=== PATIENT | female | born 1955 | race African-American/Black ===

== ENCOUNTER 2017-05-25 12:26 | Inpatient (IN) ==
[2017-05-25] MEDS ORDERED: ATROPINE SULFATE PFS IVP PRN (12:55)
[2017-05-25] MEDS ORDERED: VISTARIL INJ IM PRN (12:55)
[2017-05-25] MEDS ORDERED: MORPHINE 4 MG/ML SYRINGE IVP PRN (12:55)
[2017-05-25] MEDS ORDERED: TYLENOL PO PRN (12:55)
[2017-05-25] MEDS ORDERED: NITROSTAT SL PRN (12:55)
[2017-05-25 13:10] VITALS: BMI 44.2
[2017-05-25 13:17] LABS: ABG BASE EXCESS -1 (-2.0-2.0); ABG HCO3 23.6 (22.0-26.0); ABG PH 7.402 (7.35-7.45); ABG TCO2 25 (22.0-28.0)
[2017-05-25 13:32] LABS: BASOPHILS # (AUTO) 0.1 K/uL (0-0.2); BASOPHILS % (AUTO) 0.6 % (0.0-3.0); EOSINOPHILS # (AUTO) 0.1 K/ul (0.0-0.7); EOSINOPHILS % (AUTO) 0.7 % (0.0-7.0); HEMATOCRIT 39.9 % (37.0-47.0); HEMOGLOBIN 13.2 g/dl (12.0-16.0); IMMATURE GRANULOCYTE % (AUTO) 0.1 % (0.0-5.0); LYMPHOCYTES # (AUTO) 3.3 K/uL (0.60-3.4); LYMPHOCYTES % (AUTO) 40.3 (10.0-50.0); MEAN CORPUSCULAR HEMOGLOBIN 29.2 pg (27.0-31.0); MEAN CORPUSCULAR HGB CONC 33.1 (31.8-35.4); MEAN CORPUSCULAR VOLUME 88.3 fl (81.0-99.0); MONOCYTES # (AUTO) 0.4 K/uL (0.4-2.0); MONOCYTES % (AUTO) 5.3 (0-10); NEUTROPHILS # (AUTO) 4.3 K/ul (2.0-6.9); PLATELET COUNT 266 10^3/uL (140-440); RED BLOOD COUNT 4.52 10^6/ul (4.20-5.40); WHITE BLOOD COUNT 8.14 K/ul (4.6-10.2)
[2017-05-25 13:50] LABS: ALBUMIN 3.3 g/dL (3.4-5.0); ALBUMIN/GLOBULIN RATIO 0.92; ANION GAP 13.7; BILIRUBIN,TOTAL 1.86 mg/dL (0.00-1.20); BUN/CREATININE RATIO 12.63; CALCIUM 9.4 mg/dL (8.2-10.2); CREATININE 0.95 mg/dL (0.60-1.30); POTASSIUM 3.7 mmol/L (3.5-5.10); TOTAL PROTEIN 6.9 g/dL (5.8-8.1)
[2017-05-25] MEDS ORDERED: NON-FORMULARY MEDICATION (Hydrochlorothiazide [Hydrochlorothiazide] 12.5 MG) PO PRN ×22 (13:51)
[2017-05-25] MEDS ORDERED: COLACE PO PRN (13:51)
[2017-05-25] MEDS ORDERED: XANAX PO PRN (13:51)
[2017-05-25 14:04] LABS: TROPONIN I 0.023 ng/ml (0.0000-0.4000)
[2017-05-25 14:06] LABS: CREATINE KINASE MB 2.3 ng/ml (0.0-3.6)
[2017-05-25] MEDS ORDERED: HYDROCHLOROTHIAZIDE PO PRN (14:16)
[2017-05-25 14:18] LABS: BILIRUBIN,URINE Negative (NEGATIVE); KETONES,URINE Negative (NEGATIVE); LEUKOCYTE ESTERASE ,URINE Trace (NEGATIVE); NITRITE,URINE Negative (NEGATIVE); PH,URINE 5.5 (5-9); PROTEIN,URINE Negative (NEGATIVE); URINE, BLOOD Negative (NEGATIVE)
[2017-05-25 14:24] LABS: ADD URINE MICROSCOPIC YES
--- NOTE | 2017-05-25 15:07 | DI ---
EXAM: Chest two view, frontal and lateral views. HISTORY: Shortness of air. COMPARISON: 05/09/2013. FINDINGS: The heart size is at the upper limits of normal. Atherosclerotic calcifications are pres ent There is no pulmonary vascular congestion. The lungs are clear. No pleural effusion or pneumot horax is seen. No acute osseous abnormality identified. Clips noted in the upper abdomen. Lumbar spinal hardware is incompletely imaged. IMPRESSION: No acute cardiopulmonary process.
--- NOTE | 2017-05-25 15:42 | US ---
EXAM: Venous Doppler ultrasound examination of the bilateral lower extremity veins HISTORY: Edema TECHNIQUE: Lopez scale and color Doppler imaging of the right and left lower extremity veins was per formed. FINDINGS: There is normal response to compression and normal blood flow identified within the bilat eral common femoral, femoral, deep femoral, and popliteal veins and within the peroneal veins of the calf. The posterior tibial and anterior tibial veins were not evaluated. The examination was limit ed due to patient's body habitus. IMPRESSION: No evidence of deep venous thrombus identified within the bilateral lower extremity vei ns.
[2017-05-25] MEDS: SOLU-CORTEF 250 MG IVP SCH ×2 (16:22→20:46)
[2017-05-25] MEDS: LOVENOX SUBCUT SCH (16:22)
[2017-05-25] MEDS: PEPCID PO SCH (16:23)
[2017-05-25] MEDS: COREG PO SCH (16:37)
[2017-05-25] MEDS ORDERED: DIFLUCAN ONE (16:43)
[2017-05-25] MEDS: DIFLUCAN PO SCH (16:46)
[2017-05-25] MEDS ORDERED: NON-FORMULARY MEDICATION (Calcium Carbonate [Calcium] 500 MG) PO SCH (17:00)
[2017-05-25] MEDS: OMEGA-3 FISH OIL PO SCH (20:41)
[2017-05-25] MEDS: NEURONTIN PO SCH (20:41)
[2017-05-25] MEDS: CATAPRES PO SCH (20:41)
[2017-05-25] MEDS: NORCO 7.5-325 PO PRN (20:43)
[2017-05-25] MEDS: LANTUS SUBCUT SCH (20:45)
[2017-05-25] MEDS ORDERED: NON-FORMULARY MEDICATION (Clonidine Hcl [Clonidine Hcl] 0.2 MG) PO SCH ×22 (21:00)
[2017-05-25 21:31] LABS: TROPONIN I 0.026 ng/ml (0.0000-0.4000)
[2017-05-25] MEDS: HUMULIN R SUBCUT PRN (23:20)
[2017-05-26 04:24] LABS: BASOPHILS % (AUTO) 0.1 % (0.0-3.0); HEMATOCRIT 39.1 % (37.0-47.0); IMMATURE GRANULOCYTE % (AUTO) 0.3 % (0.0-5.0); LYMPHOCYTES # (AUTO) 1.7 K/uL (0.60-3.4); LYMPHOCYTES % (AUTO) 19.7 (10.0-50.0); MEAN CORPUSCULAR HEMOGLOBIN 29.3 pg (27.0-31.0); MEAN CORPUSCULAR HGB CONC 33.2 (31.8-35.4); MEAN CORPUSCULAR VOLUME 88.3 fl (81.0-99.0); MONOCYTES # (AUTO) 0.2 K/uL (0.4-2.0); MONOCYTES % (AUTO) 1.7 (0-10); NEUTROPHILS # (AUTO) 6.8 K/ul (2.0-6.9); NEUTROPHILS % (AUTO) 78.2; PLATELET COUNT 264 10^3/uL (140-440); RED BLOOD COUNT 4.43 10^6/ul (4.20-5.40); WHITE BLOOD COUNT 8.75 K/ul (4.6-10.2)
[2017-05-26 04:45] LABS: ALBUMIN/GLOBULIN RATIO 0.88; ANION GAP 13.1; BILIRUBIN,TOTAL 1.73 mg/dL (0.00-1.20); BUN/CREATININE RATIO 15.46; CALCIUM 9.5 mg/dL (8.2-10.2); CREATININE 0.97 mg/dL (0.60-1.30); POTASSIUM 4.1 mmol/L (3.5-5.10); TOTAL PROTEIN 6.4 g/dL (5.8-8.1)
[2017-05-26] MEDS: LASIX TAB PO SCH (05:31)
[2017-05-26] MEDS: PROTONIX PO SCH (05:32)
[2017-05-26] MEDS: PEPCID PO SCH ×2 (05:32→17:17)
[2017-05-26] MEDS: SOLU-CORTEF 250 MG IVP SCH ×3 (05:33→22:25)
[2017-05-26] MEDS: NON-FORMULARY MEDICATION (Canagliflozin [Invokana] 300 MG) PO SCH (05:34)
[2017-05-26] MEDS: HUMULIN R SUBCUT PRN ×4 (05:34→22:09)
[2017-05-26] MEDS ORDERED: ASPIRIN EC PO SCH (08:00)
[2017-05-26] MEDS: OMEGA-3 FISH OIL PO SCH ×2 (08:55→21:14)
[2017-05-26] MEDS: TRIGLIDE PO SCH (08:55)
[2017-05-26] MEDS: ASPIRIN EC PO SCH (08:55)
[2017-05-26] MEDS: COZAAR PO SCH (08:55)
[2017-05-26] MEDS: CALCIUM 500 + VIT D 200 MG TABLET PO SCH (08:56)
[2017-05-26] MEDS: NEURONTIN PO SCH ×2 (08:56→21:14)
[2017-05-26] MEDS: VITAMIN D PO SCH (08:56)
[2017-05-26] MEDS: LANTUS SUBCUT SCH ×2 (08:56→21:16)
[2017-05-26] MEDS: MICRO-K CAP PO SCH (08:56)
[2017-05-26] MEDS: LOVENOX SUBCUT SCH (08:57)
[2017-05-26] MEDS: CRESTOR PO SCH (08:57)
[2017-05-26] MEDS ORDERED: NON-FORMULARY MEDICATION (Rosuvastatin Calcium [Crestor] 40 MG) PO SCH (09:00)
[2017-05-26] MEDS ORDERED: NON-FORMULARY MEDICATION (Losartan Potassium 50 MG) PO SCH (09:00)
[2017-05-26] MEDS ORDERED: EPA PO SCH (09:00)
[2017-05-26] MEDS ORDERED: OMEGA PO SCH (09:00)
[2017-05-26] MEDS ORDERED: NON-FORMULARY MEDICATION (Potassium Chloride [K-Tab Er] 10 MEQ) PO SCH (09:00)
[2017-05-26] MEDS ORDERED: DHA PO SCH (09:00)
[2017-05-26] MEDS ORDERED: NON-FORMULARY MEDICATION (Carvedilol [Coreg] 25 MG) PO SCH ×22 (09:00)
[2017-05-26] MEDS ORDERED: FISH OIL PO SCH (09:00)
[2017-05-26] MEDS ORDERED: NON-FORMULARY MEDICATION (Fenofibrate Nanocrystallized [Fenofibrate] 145 MG) PO SCH ×22 (09:00)
[2017-05-26] MEDS ORDERED: DECADRON 4 MG/ML SDV IM STA (09:04)
[2017-05-26] MEDS: LOPRESSOR PO SCH ×2 (09:23→21:14)
[2017-05-26] MEDS: COREG PO SCH ×2 (09:24→17:18)
[2017-05-26] MEDS: NORCO 7.5-325 PO PRN (17:18)
[2017-05-26] MEDS: CATAPRES PO SCH (21:15)
[2017-05-27 04:20] LABS: BASOPHILS % (AUTO) 0.2 % (0.0-3.0); HEMATOCRIT 38.4 % (37.0-47.0); HEMOGLOBIN 12.6 g/dl (12.0-16.0); IMMATURE GRANULOCYTE % (AUTO) 0.9 % (0.0-5.0); LYMPHOCYTES # (AUTO) 1.9 K/uL (0.60-3.4); LYMPHOCYTES % (AUTO) 15.7 (10.0-50.0); MEAN CORPUSCULAR HEMOGLOBIN 29.5 pg (27.0-31.0); MEAN CORPUSCULAR HGB CONC 32.8 (31.8-35.4); MEAN CORPUSCULAR VOLUME 89.9 fl (81.0-99.0); MONOCYTES # (AUTO) 0.3 K/uL (0.4-2.0); MONOCYTES % (AUTO) 2.6 (0-10); NEUTROPHILS # (AUTO) 9.7 K/ul (2.0-6.9); NEUTROPHILS % (AUTO) 80.6; PLATELET COUNT 237 10^3/uL (140-440); RED BLOOD COUNT 4.27 10^6/ul (4.20-5.40); WHITE BLOOD COUNT 12.02 K/ul (4.6-10.2)
[2017-05-27] MEDS: SOLU-CORTEF 250 MG IVP SCH (04:41)
[2017-05-27 04:43] LABS: ALBUMIN 2.9 g/dL (3.4-5.0); ALBUMIN/GLOBULIN RATIO 0.88; ANION GAP 12.3; BILIRUBIN,TOTAL 1.04 mg/dL (0.00-1.20); BUN/CREATININE RATIO 17.47; CALCIUM 9.3 mg/dL (8.2-10.2); CREATININE 1.03 mg/dL (0.60-1.30); POTASSIUM 4.3 mmol/L (3.5-5.10); TOTAL PROTEIN 6.2 g/dL (5.8-8.1)
[2017-05-27] MEDS: PROTONIX PO SCH (05:44)
[2017-05-27] MEDS: PEPCID PO SCH ×2 (05:44→16:50)
[2017-05-27] MEDS: LASIX TAB PO SCH (05:44)
[2017-05-27] MEDS: NON-FORMULARY MEDICATION (Canagliflozin [Invokana] 300 MG) PO SCH (05:45)
[2017-05-27] MEDS: HUMULIN R SUBCUT PRN ×3 (06:30→16:50)
[2017-05-27] MEDS: VITAMIN D PO SCH (09:12)
[2017-05-27] MEDS: COZAAR PO SCH (09:12)
[2017-05-27] MEDS: ASPIRIN EC PO SCH (09:12)
[2017-05-27] MEDS: DIFLUCAN PO SCH (09:13)
[2017-05-27] MEDS: LANTUS SUBCUT SCH ×2 (09:13→21:44)
[2017-05-27] MEDS: LOVENOX SUBCUT SCH (09:14)
[2017-05-27] MEDS: MICRO-K CAP PO SCH (09:14)
[2017-05-27] MEDS: LOPRESSOR PO SCH ×2 (09:14→21:43)
[2017-05-27] MEDS: OMEGA-3 FISH OIL PO SCH ×2 (09:15→21:43)
[2017-05-27] MEDS: TRIGLIDE PO SCH (09:15)
[2017-05-27] MEDS: NEURONTIN PO SCH ×2 (09:15→21:43)
[2017-05-27] MEDS: CALCIUM 500 + VIT D 200 MG TABLET PO SCH (09:15)
[2017-05-27] MEDS: CRESTOR PO SCH (09:16)
[2017-05-27] MEDS: COREG PO SCH ×2 (09:19→16:51)
[2017-05-27] MEDS ORDERED: ZOFRAN 4 MG/2 ML IVP PRN (10:00)
[2017-05-27] MEDS: PREDNISONE PO SCH (10:12)
[2017-05-27] MEDS: NORCO 7.5-325 PO PRN (20:00)
[2017-05-27] MEDS: CATAPRES PO SCH (22:18)
[2017-05-28 05:41] LABS: HEMOGLOBIN 12.3 g/dl (12.0-16.0); MEAN CORPUSCULAR HEMOGLOBIN 28.9 pg (27.0-31.0); MEAN CORPUSCULAR HGB CONC 32.4 (31.8-35.4); MEAN CORPUSCULAR VOLUME 89.4 fl (81.0-99.0); PLATELET COUNT 304 10^3/uL (140-440); RED BLOOD COUNT 4.25 10^6/ul (4.20-5.40); WHITE BLOOD COUNT 16.56 K/ul (4.6-10.2)
[2017-05-28 05:50] LABS: ANISOCYTOSIS NOT PRESENT (NOT PRESENT)
[2017-05-28 06:01] LABS: ALBUMIN/GLOBULIN RATIO 0.91; ANION GAP 11.8; BILIRUBIN,TOTAL 0.84 mg/dL (0.00-1.20); BUN/CREATININE RATIO 19.26; CALCIUM 9.3 mg/dL (8.2-10.2); CREATININE 1.09 mg/dL (0.60-1.30); POTASSIUM 3.8 mmol/L (3.5-5.10); TOTAL PROTEIN 6.3 g/dL (5.8-8.1)
[2017-05-28] MEDS: PEPCID PO SCH (06:02)
[2017-05-28] MEDS: LASIX TAB PO SCH (06:02)
[2017-05-28] MEDS: PROTONIX PO SCH (06:02)
[2017-05-28] MEDS: NON-FORMULARY MEDICATION (Canagliflozin [Invokana] 300 MG) PO SCH (06:03)
[2017-05-28] MEDS ORDERED: ATROPINE SULFATE PFS ONE (07:25)
[2017-05-28] MEDS ORDERED: DOBUTAMINE 250 ML IV ONE (07:25)
--- NOTE | 2017-05-28 11:11 | NM ---
EXAM: Myocardial perfusion imaging HISTORY: Tachycardia COMPARISON: Myocardial imaging on 07/28/2015 showed no ischemia. Ejection fraction of 45%. TECHNIQUE: Patient was first stressed using dobutamine protocol and injected 12.9 mCi of Tc99m Sesta mibi intravenously. SPECT imaging of the heart was acquired. Patient was subsequently injected 32. 7 mCi of Tc99m Sestamibi intravenously while at rest. Another SPECT imaging of the heart was perfor med. Gated cardiac study was performed. FINDINGS: Post stress images show dilated left ventricular cavity. Moderately reduced perfusion is seen involving the septal wall as well as anterior wall. Reperfusion is noted on delayed images. L ateral wall shows normal perfusion. There is reduced activity involving inferior wall which shows n o significant change and may be due to old injury. Left ventricular ejection fraction is 32% which has decreased since previous study. Wall motion could not be evaluated. IMPRESSION: 1. SPECT myocardial imaging demonstrates Dobutamine induced reversible ischemia involving anterior wall and intraventricular septum. 2. Dilated left ventricle with low ejection fraction of 32%. . 3. Question old injury inferior wall.
[2017-05-28] MEDS: CALCIUM 500 + VIT D 200 MG TABLET PO SCH (11:15)
[2017-05-28] MEDS: OMEGA-3 FISH OIL PO SCH (11:15)
[2017-05-28] MEDS: ASPIRIN EC PO SCH (11:16)
[2017-05-28] MEDS: LOPRESSOR PO SCH (11:16)
[2017-05-28] MEDS: LOVENOX SUBCUT SCH (11:17)
[2017-05-28] MEDS: MICRO-K CAP PO SCH (11:17)
[2017-05-28] MEDS: CRESTOR PO SCH (11:18)
[2017-05-28] MEDS: TRIGLIDE PO SCH (11:18)
[2017-05-28] MEDS: NEURONTIN PO SCH (11:19)
[2017-05-28] MEDS: VITAMIN D PO SCH (11:20)
[2017-05-28] MEDS: PREDNISONE PO SCH (11:20)
[2017-05-28] MEDS: COREG PO SCH (11:21)
[2017-05-28] MEDS: COZAAR PO SCH (11:21)
[2017-05-28] MEDS: LANTUS SUBCUT SCH (11:22)
--- NOTE | 2017-05-28 12:43 | ECHO2D ---
Date of Exam: 05/26/17 Ordering Physician: JUAN PARIKH Reason for Echo: SOB, DYSLIPIDEMIA, HYPERTENSION, DM, CARDIOMEGALY M-Mode Normal Adult Results LV Dimensions Normal Adult Results AoV Opening excursions >1.6 >1.6 LVEDD-base- 3.5-5.8 5.2 Ao root dimensions 2.0-3.7 3.3 LVESD-base- 3.1-4.6 L. Atrium dimensions 1.9-3.8 4.7 Post. Wall thickness 0.8-1.1 1.1 IV septum (thickness) 0.7-1.2 1.4 Post. Wall excursion 0.72-1.3 0.5 Septal motion 0.4 Systolic motion R. Ventricular cavity 1.5-2.0 NORMAL LVEF 60% 30% Paradoxical septal wall motion NORMAL 2-D : HYPOKINETIC LEFT VENTRICLE--ENLARGED LEFT ATRIAL CAVITY--NORMAL VALVES-- NO EFFUSION, NO THROMBUS M-MODE: MV: NORMAL AV: NORMAL TV: NORMAL PV: CHAMBER SIZE: ENLARGED LEFT ATRIAL CAVITY WALL MOTION: HYPOKINETIC LEFT VENTRICLE PERICARDIUM: NORMAL INTERPRETATION: 1. LEFT VENTRICULAR HYPERTROPHY WITH ENLARGED LEFT ATRIAL CAVITY 2. HYPOKINETIC LEFT VENTRICLE WITH EJECTION FRACTION 30% 3. NORMAL LEFT VENTRICLE SIZE MTDD
--- NOTE | 2017-05-28 13:23 | HP ---
DATE OF SERVICE: 05/25/17 REASON FOR HOSPITALIZATION/HISTORY OF PRESENT ILLNESS: This is a 62-year-old female who presented really short of breath of breath times two weeks and dizziness. She has had no energy, wheezing off and on, vague chest pain. No symptoms of CHF. REVIEW OF SYSTEMS: CONSTITUTIONAL: Fatigue. No fever. HEENT: No sinus drainage, no sore throat. RESPIRATORY: No cough, no congestion. No hemoptysis CARDIOVASCULAR: Palpitations. Shortness of breath. No atypical chest pain for coronary artery disease. No angina, CHF symptoms. GASTROINTESTINAL: No melena or abdominal pain. No GERD. GENITOURINARY: No hematuria, no polyuria. CORNER BEAD OPERATOR: No blackout, no dizziness, no headache, no double vision. MUSCULOSKELETAL: Osteoarthritis pain, no joint swelling. ENDOCRINE: No weight loss, no weight gain. SKIN: Not dry, no rash. PSYCHIATRIC: Anxious. No depression, no suicidal thoughts, no homicidal thoughts. PAST MEDICAL HISTORY: 1. Hypertension 2. Diabetes mellitus 3. Arthritis 4. Asthma 5. DJD spinie 6. Riley's esophagitis 7. Depression 8. Lung nodule 9. Neuropathy PAST SURGICAL HISTORY: 1. Hysterectomy 2. Hernia repair 3. Gallbladder 4. Back surgery with rods and screws 5. Knee surgery, bilateral 6. times three SOCIAL HISTORY: The patient is . Disabled. Three children. Nonsmoker. No alcohol use. FAMILY HISTORY: Father is . Mother is living. Brother times one. Six living sisters. ALLERGIES: LISINOPRIL, ADHESIVE MEDICATIONS: (HOME) 1. [place] 3/DHA/EPA/Fish Oil one each capsule 500 mg p.o. b.i.d. 2. Cholecalciferol 1,000 units p.o. daily 3. Rosuvastatin (Crestor) 40 mg p.o. daily 4. Potassium Chloride (K-Tab ER) 10 mEq p.o. daily 5. Pantoprazole (Protonix) 40 mg p.o. daily 6. Losartan (Cozaar) 100 mg p.o. daily 7. Insulin (Lantus) 60 units SQ daily 8. Insulin Glargine 60 units SQ daily 9. Hydrocodone/Acetaminophen one tab p.o. t.i.d. p.r.n. 10. Hydrochlorothiazide 12.5 mg p.o. daily p.r.n. 11. Gabapentin (Neurontin) 100 mg p.o. b.i.d. 12. Furosemide (Lasix) 20 mg p.o. daily 13. Fenofibrate 145 mg p.o. daily 14. Famotidine 20 mg p.o. b.i.d. 15. Docusate Sodium (Colace) 100 mg p.o. daily p.r.n. 16. Clonidine 0.2 mg p.o. bedtime 17. Carvedilol (Coreg) 25 mg p.o. b.i.d. 18. Canagliflozin (Invokana) 300 mg p.o. a.c. 19. Calcium Carbonate 500 mg p.o. daily 20. Aspirin 325 mg p.o. daily 21. Alprazolam (Xanax) 0.5 mg p.o. b.i.d. p.r.n. PHYSICAL EXAMINATION: V/S: Pulse 118, BP 138/88, 02 sat 96%. Height 5.5", weight 266.6, BMI 44.5. GENERAL APPEARANCE: Oriented times three. HEENT: Normal. NECK: No JVP, no bruits. RESPIRATORY: Lungs are clear. CARDIOVASCULAR: S1, S2, no S3, no murmurs. No cyanosis, clubbing. No ascites. GI/ABDOMEN: No tenderness. Bowel sounds are active. EXTREMITIES: No edema, pulses +1, equal. CORNER BEAD OPERATOR: Deep tendon reflexes, sensory, motor and gait all normal. RECTAL/PELVIC: Colonoscopy 12/12, Dr. Hodges. Pelvic: Hysterectomy 2007. Mammogram 06/09/16 at [facility]. LAB TESTS: p02 76, pc02 38, pH 7.4 with 95% saturation on room air. BNP 545, hemoglobin 13 , hematocrit 39, WBC 8,000, normal differential. Creatinine 0.9, BUN 12, glucose 126. The patient's EKG showed LBBB type of pattern, incomplete with rate of 95/min. P. Pulmonale type of P wave could be pulmonary disease. T4, TSH normal. Cardiac markers negative. D. dimer less than 500. UA normal. Chest x-ray normal. Venous scan normal. ASSESSMENT: 1. SHORTNESS OF BREATH 2. HISTORY OF ASTHMA, DR. BABIN IN MAY 3. SINUS TACHYCARDIA 4. UNCONTROLLED DIABETES MELLITUS TYPE 2 (A1C 11.0 on 03/22/17) 5. MORBID OBESITY 6. HYPERTENSION, LABILE 7. DYSLIPIDEMIA 8. DJD L-SPINE - RECEIVES INJECTIONS, DR. ALDRICH PAIN MANAGEMENT 9. OSTEOARTHRITIS KNEES 10. GENERALIZED ANXIETY DISORDER 11. DEPRESSION, LEXAPRO HELPS 12. GERD 13. PERIPHERAL NEUROPATHY 14. LUNG NODULE 5 CM NONCALCIFIED 15. ADRENAL ADENOMA 1.1 CM 16. HYSTERECTOMY 17. CHOLECYSTECTOMY 18. BILATERAL TKR PLAN: 1. Admit regular 2. Routine telemetry orders 3. D. Dimer/BNP 4. Bilateral lower extremity venous scan 5. T4 and TSH 6. Daily CBC and CMP 7. 125 mg IV Solu-Cortef now and 8 hourly 8. ABG now 9. Continue all home medications 10. Lovenox 40 mg SQ daily 11. Echocardiogram 2 'D' "M" Mode TIME SPENT: More than 70 minutes. MTDD
[2017-05-28 13:29] VITALS: BP 154/102; TEMP 97.8
--- NOTE | 2017-05-28 13:39 | PN ---
DATE OF SERVICE: 05/27/17 SUBJECTIVE: The patient is a 62 year old white female hospitalized with shortness of breath , sinus tachycardia and uncontrolled diabetes. The patient is feeling a lot better. The patient needs to have Dobutamine Stress Sestamibi echo evaluate her for coronary insufficiency. REVIEW OF SYSTEMS: CONSTITUTIONAL: No night sweats. Mild fatigue. No malaise, lethargy. No fever or chills. HEENT: Eyes: No visual changes. No eye pain. No eye discharge. ENT: No runny nose. No epistaxis. No sinus pain. No sore throat. No odynophagia. No congestion. RESPIRATORY: No cough, no congestion. No hemoptysis. CARDIOVASCULAR: No angina symptoms. No CHF symptoms. No atypical chest pain for CAD. No palpitations. Shortness of breath on exertion. GASTROINTESTINAL: No abdominal pain. No nausea or vomiting. No diarrhea or constipation. No hematemesis. No hematochezia. GENITOURINARY: No urgency. No frequency. No dysuria. No hematuria. No obstructive symptoms. No discharge. No pain. No significant abnormal bleeding. MUSCULOSKELETAL: No musculoskeletal pain; no joint swelling. NEUROLOGICAL: No headache. No neck pain. No syncope. No seizures. No dizziness. PSYCHIATRIC: Not anxious. No depression. No suicidal thoughts. No homicidal thoughts. SKIN: No rash. No lesions. No wounds. ENDOCRINE: No unexplained weight loss. No weight gain. HEMATOLOGIC/LYMPHATIC: No anemia. No purpura. No petechiae. No prolonged or excessive bleeding. No palpable lymph nodes. PHYSICAL EXAMINATION: GENERAL: The patient is oriented to time, place and person. VITAL SIGNS: Temperature 96.8, pulse 87, respiratory rate 18, blood pressure 113/74 and pulse ox 96%. HEENT: Head normocephalic, atraumatic. Eyes: Extraocular muscles are intact. Pupils are equal, round and reactive to light and accommodation. Ears: No lesions. Nose appeared normal. Throat: No exudate or erythema. NECK: Supple. No JVD, no carotid bruit. No lymphadenopathy or thyromegaly. LUNGS: Decreased breath sounds but clear to auscultation. Percussion note normal. Chest symmetrical. HEART: S1, S2, no S3. No murmurs. No cyanosis or clubbing. No ascites. Pulses: Dorsalis pedis and posterior tibial pulses +1 to +2 both sides. ABDOMEN: Soft. Nontender. Bowel sounds active. No CVA tenderness. No mass felt. EXTREMITIES: No edema. Full range of motion of all extremities, equal. NEUROLOGIC: No focal deficit. Cranial nerves II through XII are grossly intact. No headache, no double vision or headache. SKIN: Not dry. Intact. Turgor - normal. LYMPHATIC: No palpable lymph nodes/no lymphedema. MUSCULOSKELETAL: Normal joints with no swelling. Muscle tone is normal. LABS: hgb 12.6, hct 38, WBC 12,000 normal differential, creatinine 1, BUN 18, potassium 4.3, BNP 545 ASSESSMENT: 1. Congestive heart failure, systolic diastolic 2. LVH with hypokinetic left ventricle with ejection fraction 30% with normal LV size 3. Diabetes Mellitus 4. Obesity 5. Hypertension 6. Dyslipidemia PLANS: 1. Dobutamine Stress Echo Sestamibi 2. Explained about patient to lose weight 3. Diet discussed CONDITION: Stable TIME SPENT: More than 30 minutes. Plan and coordination of the patient's care discussed in the presence of nurse. ARUNA
--- NOTE | 2017-05-28 13:46 | PN ---
DATE OF SERVICE: 05/26/17 SUBJECTIVE: 62-year-old female hospitalized with shortness of breath, sinus tachycardia, uncontrolled diabetes. The patient's condition is somewhat better. She says she is breathing better. The cough is much less. The cough is whitish. She says that steroids seems to be helping. The patient's sinus tachycardia seems to be under control. She was given a small dose of Beta erin. REVIEW OF SYSTEMS: CONSTITUTIONAL: No night sweats. No fatigue, malaise, lethargy. No fever or chills. HEENT: Eyes: No visual changes. No eye pain. No eye discharge. ENT: No runny nose. No epistaxis. No sinus pain. No sore throat. No odynophagia. No congestion. RESPIRATORY: No cough, no congestion. No hemoptysis. CARDIOVASCULAR: No angina symptoms. No CHF symptoms. No palpitations. Less shortness of breath. No PND, no orthopnea. No chest pain at the present time. GASTROINTESTINAL: No abdominal pain. No nausea or vomiting. No diarrhea or constipation. No hematemesis. No hematochezia. GENITOURINARY: No urgency. No frequency. No dysuria. No hematuria. No obstructive symptoms. No discharge. No pain. No significant abnormal bleeding. MUSCULOSKELETAL: No musculoskeletal pain; no joint swelling. NEUROLOGICAL: No headache. No neck pain. No syncope. No seizures. No dizziness. PSYCHIATRIC: Not anxious. No depression. No suicidal thoughts. No homicidal thoughts. SKIN: No rash. No lesions. No wounds. ENDOCRINE: No unexplained weight loss. No weight gain. HEMATOLOGIC/LYMPHATIC: No anemia. No purpura. No petechiae. No prolonged or excessive bleeding. No palpable lymph nodes. PHYSICAL EXAMINATION: GENERAL: The patient is oriented to time, place and person. VITAL SIGNS: Temperature 97.9, respiratory rate 20, BP 130/70, pulse 87, Pulse ox 97%. HEENT: Head normocephalic, atraumatic. Eyes: Extraocular muscles are intact. Pupils are equal, round and reactive to light and accommodation. Ears: No lesions. Nose appeared normal. Throat: No exudate or erythema. NECK: Supple. No JVD, no carotid bruit. No lymphadenopathy or thyromegaly. LUNGS: Decreased breath sounds. Clear to auscultation. Percussion note normal. Chest symmetrical. HEART: S1, S2, no S3. No murmurs. No cyanosis or clubbing. No ascites. Pulses: Dorsalis pedis and posterior tibial pulses +1 to +2 both sides. ABDOMEN: Soft. Nontender. Bowel sounds active. No CVA tenderness. No mass felt. EXTREMITIES: No edema. Full range of motion of all extremities, equal. NEUROLOGIC: No focal deficit. Cranial nerves II through XII are grossly intact. No headache, no double vision or headache. SKIN: Not dry. Intact. Turgor - normal. LYMPHATIC: No palpable lymph nodes/no lymphedema. MUSCULOSKELETAL: Normal joints with no swelling. Muscle tone is normal. LABS: Hemoglobin 13, hematocrit 39, WBC 8,700, normal differential. Creatinine 0.9, BUN 15, potassium 4.1, glucose 208, BNP 545. T4, TSH negative. Echocardiogram was done which showed LVH with enlarged LA cavity. The patient has LV ejection fraction of 30%, looks like the patient has both systolic and diastolic congestive heart failure which seems to be under control. PLAN: 1. Metoprolol 25 mg b.i.d. 2. Decadron intermittently needs to be continued. 3. Diet discussed with the patient for weight loss and diabetes. All diagnoses discussed with the patient. The patient's BMI is 44. That seems to be the main problem. The patient is strongly advised to lose weight. 4. The patient may need Dobutamine stress echo. CONDITION: Stable. TIME SPENT: More than 30 minutes. Plan and coordination of the patient's care discussed in the presence of nurse. ARUNA
--- NOTE | 2017-05-30 13:30 | ECHOSTRESS ---
Date of Exam: 05/28/2017 Ordering Physician: JUAN PARIKH Reason for Echo: INCREASED HEART RATE, UNCONTROLLED DIABETES, DOBUTAMINE STRESS- NO ISCHEMIA M-Mode Normal Adult Results LV Dimensions Normal Adult Results AoV Opening excursions >1.6 LVEDD-base- 3.5-5.8 Ao root dimensions 2.0-3.7 LVESD-base- 3.1-4.6 L. Atrium dimensions 1.9-3.8 Post. Wall thickness 0.8-1.1 IV septum (thickness) 0.7-1.2 Post. Wall excursion 0.72-1.3 Septal motion Systolic motion R. Ventricular cavity 1.5-2.0 LVEF 60% Paradoxical septal wall motion 2-D: HYPOKINETIC LEFT VENTRICLE WITH IMPAIRED LEFT VENTRICULAR CONTRACTILITY WITH DOBUTAMINE INFUSION M-MODE: MV: AV: TV: PV: CHAMBER SIZE: WALL MOTION: HYPOKINETIC LEFT VENTRICLE WITH IMPAIRED LEFT VENTRICULAR CONTRACTILITY WITH DOBUTAMINE INFUSION PERICARDIUM: INTERPRETATION: 1. HYPOKINETIC LEFT VENTRICLE WITH IMPAIRED LEFT VENTRICULAR CONTRACTILITY WITH DOBUTAMINE INFUSION 2. THALLIUM TO FOLLOW MTDD
--- NOTE | 2017-05-30 13:49 | DOBSTECHST ---
Ordering Physician: JUAN PARIKH Date of Test: 05/28/2017 Reason for Examination: INCREASED HEART RATE, UNCONTROLLED DIABETES, Cardiac History: CARDIAC CATHETERIZATION 2012 - NO STENTS Current Medications: NORCO, ASA, COREG, CATAPRES, VIT D, LOVENOX, PEPCID, TRIGLIDE, DIFLUCAN, LASIX, NEURONTIN, LANTUS, HUMULIN R, COZAAR, LOPRESSOR, INVOKANA, ZOFRAN, PROTONIX, PREDNISONE, CRESTOR Height: 65" Weight: 266 LBS Target Heart Rate: 135/159 Stage Time HR BPM BP mmhg Rhythm +/- Up Down Comments/Symptoms Control Sitting 89 118/92 SR NONE Dobutamine 250mg/D5W 5cmg/KG/mn 10cmg/KG/mn 3 MIN 95 120/96 SR NONE 15cmg/KG/mn 2 MIN 100 136/80 SR NONE 20cmg/KG/mn 2 MIN 104 136/76 SR NONE 25cmg/KG/mn 2 MIN 127 140/80 SR NONE 30cmg/KG/mn 35cmg/KG/mn 40cmg/KG/mn Time:4 MIN HR B/P Time: 9 MIN HR B/P Time: HR B/P Recovery 118 128/80 Recovery 99 Recovery Duration of Exercise: 9:00 Maximum Heart Rate Reached: 127 __ Interpretation: 1. NO EVIDENCE OF ISCHEMIA BY ST-T [facility] 2. NO CHEST PAIN OR CHEST DISCOMFORT 3. IMPROVED LEFT VENTRICULAR CONTRACTILITY WITH DOBUTAMINE INFUSION. HYPOKINETIC LEFT VENTRICLE AT REST 4. THALLIUM TO FOLLOW MTDD
--- NOTE | 2017-06-04 14:57 | DS ---
DATE OF SERVICE: 05/28/17 FINAL DIAGNOSIS: 1. Anterior wall reversible ischemia by clear scan 2. Cardiomyopathy Hypertrophic LV ejection 32% with LVH and Normal LV cavity size 3. Uncontrolled diabetes 4. Hypertension 5. Dyslipidemia 6. Obesity, morbid 7. History of asthma followed by DR. Skaggs in the past 8. Gastroesophageal reflux disease DISCHARGE INSTRUCTIONS: Transfer the patient to [facility]. Followup with Dr. Pressley in one week. MEDICATIONS AT DISCHARGE: Aspirin 325mg daily Xanax 0.5mg twice a day PRN [place] 300mg PO daily Coreg 25mg twice a day Metoprolol 25mg twice a day Clonidine 0.1mg at night Fenofibrate 145mg PO daily Rosuvastatin 40mg PO daily Gabapentin 100mg PO twice a day Lasix 20mg PO daily Lantus 60 and 90 units which will be decreased Losartan 100mg PO daily Pantoprazole 40mg PO QAM K-tab 10meq PO daily DIET INSTRUCTIONS: As tolerated ACTIVITY: As tolerated SMOKING: Non-Smoker DISEASE SPECIFIC EDUCATION: Transfer Medication change HOSPITAL COURSE: The patient is a 62 year old black female hospitalized with shortness of breath , sinus tachycardia and uncontrolled diabetes. The patient was worked up with echocardiogram which showed poor LV ejection fraction with hypokinetic left ventricle. The patient underwent stress sestamibi which showed reversible anterior wall ischemia. The patient was advised coronary angiogram to which she has agreed. The patient will be transferred to [facility] for further investigation. The patient has several risk factors for coronary artery disease like obesity, sedentary life style and hypertension, dyslipidemia, diabetes Mellitus. The patient during the hospital stay that patient was continued on Coreg 25mg twice a day. The patient still needed some Beta erin so Metoprolol was added even though Coreg is a beta erin. She responded to the small dose of Metoprolol very well with rest heart rate was 80-90 per minute. The patient was continued on Cozaar and Hydrochlorothiazide was discontinued which was to be taken for extra swelling that she may have along with her Lasix. The patient's Clonidine was decreased to 0.1mg. The patient's condition at the time of discharge is stable. LABS: Hgb 12.3, hct 38, WBC 16,000 normal differential, creatinine 1, BUN 21, potassium 3.8, Glucose 57 the morning of transfer. T4 TSH normal, BNP 545. Estimated GFR 62cc per minute. Echo as mentioned above. Stress sestamibi as mentioned above. TIME SPENT: More than 60 minutes. MTDD
--- NOTE | 2017-06-04 14:58 | PN ---
05/25/17: Level 5 05/26/17: Intermediate 05/27/17: Intermediate 05/28/17: D as in discharge MTDD
--- NOTE | 2017-06-04 15:31 | PN ---
DATE OF SERVICE: 05/28/17 DISCHARGE NOTE SUBJECTIVE: The patient is a 62 year old black female hospitalized with shortness of breath , sinus tachycardia. The patient's further work up in a way of echo showed hypokinetic left ventricle with ejection fraction of 30%. The patient has LVH with normal LV contractility. The patient had tachycardia and the patient has been started on Lopressor 25mg twice a day and Coreg was continued and we acknowledge that the patient has been on Alpha beta erin and beta erin. The patient's heart rate was controlled with rate of 80-100 per minute much better. She was continued on Zocor. The patient's blood pressure was well controlled. Lasix was continued. Hydrochlorothiazide with discontinued. Catapres to be reduced to 0.1mg. Aspirin was continued. The patient's Dobutamine stress sestamibi revealed the patient has reversible ischemia involving anterior wall. The patient was advised coronary angiogram to which she agreed. The patient will be transferred to [facility]. It is to be noted that patient has multiple risk factors like morbid obesity, diabetes Mellitus poor controlled, hypertension, severe dyslipidemia. It was explained about risk factors and how to modified that. LABS: On the day of discharge the patient's hgb 12.3, hct 38, WBC 16,000 normal differential, creatinine 1, BUN 21, potassium 3.8. ASSESSMENT: 1. History of bronchial asthma, steroid help her to breath better CONDITION AT DISCHARGE: Stable TIME SPENT: More than 30 minutes. Plan and coordination of the patient's care discussed in the presence of nurse. ARUNA
== END 2017-05-28 15:00 | disposition short-term general hospital (02) | DRG 303 ==
LOC: MEDSURG A 12:26
PROVIDERS: ADMIT Internal Medicine; ATTEND Internal Medicine
DX: I25.9 Chronic ischemic heart disease, unspecified (principal); I50.40 Unspecified combined systolic (congestive) and diastolic (congestive) heart failure; I42.2 Other hypertrophic cardiomyopathy; R94.39 Abnormal result of other cardiovascular function study; I51.7 Cardiomegaly; E11.65 Type 2 diabetes mellitus with hyperglycemia; I10 Essential (primary) hypertension; R00.0 Tachycardia, unspecified; E78.5 Hyperlipidemia, unspecified; J45.909 Unspecified asthma, uncomplicated; E66.01 Morbid (severe) obesity due to excess calories; K21.9 Gastro-esophageal reflux disease without esophagitis; Z72.3 Lack of physical exercise; Z79.4 Long term (current) use of insulin; Z79.899 Other long term (current) drug therapy
CPT/HCPCS: 36415; 80053; 81001; 82550; 82553; 82803; 82962; 83874; 83880; 84439; 84443; 84484; 85007; 85025; 85379; 93005; 93010

== ENCOUNTER 2017-05-28 15:08 | Outpatient (CLI) | END 2017-05-28 15:09 | disposition short-term general hospital (02) | LOC: AMBL 15:08 | PROVIDERS: ATTEND Internal Medicine | DX: R06.02 Shortness of breath (principal); R94.39 Abnormal result of other cardiovascular function study ==

== ENCOUNTER 2017-11-01 12:59 | Outpatient (CLI) ==
[2017-11-01 13:44] LABS: BASOPHILS # (AUTO) 0.1 K/uL (0-0.2); BASOPHILS % (AUTO) 0.9 % (0.0-3.0); EOSINOPHILS # (AUTO) 0.1 K/ul (0.0-0.7); EOSINOPHILS % (AUTO) 1.2 % (0.0-7.0); HEMATOCRIT 41.3 % (37.0-47.0); HEMOGLOBIN 13.7 g/dl (12.0-16.0); IMMATURE GRANULOCYTE % (AUTO) 0.3 % (0.0-5.0); LYMPHOCYTES # (AUTO) 2.4 K/uL (0.60-3.4); LYMPHOCYTES % (AUTO) 35.1 (10.0-50.0); MEAN CORPUSCULAR HGB CONC 33.2 (31.8-35.4); MEAN CORPUSCULAR VOLUME 90.6 fl (81.0-99.0); MONOCYTES # (AUTO) 0.4 K/uL (0.4-2.0); MONOCYTES % (AUTO) 5.8 (0-10); NEUTROPHILS # (AUTO) 3.9 K/ul (2.0-6.9); NEUTROPHILS % (AUTO) 56.7; PLATELET COUNT 266 10^3/uL (140-440); RED BLOOD COUNT 4.56 10^6/ul (4.20-5.40); WHITE BLOOD COUNT 6.93 K/ul (4.6-10.2)
[2017-11-01 14:08] LABS: ALBUMIN 3.3 g/dL (3.4-5.0); ALBUMIN/GLOBULIN RATIO 0.77; ANION GAP 14.8; BILIRUBIN,TOTAL 1.02 mg/dL (0.00-1.20); BUN/CREATININE RATIO 17.14; CALCIUM 9.8 mg/dL (8.2-10.2); CHOL/HDL RATIO 5.6 (4.5-5.5); CREATININE 1.05 mg/dL (0.60-1.30); POTASSIUM 3.8 mmol/L (3.5-5.10); TOTAL PROTEIN 7.6 g/dL (5.8-8.1)
== END 2017-11-01 13:00 | disposition home or self-care (01) ==
LOC: LAB 12:59
PROVIDERS: ATTEND Emergency Medicine
DX: I25.118 Atherosclerotic heart disease of native coronary artery with other forms of angina pectoris (principal); I50.21 Acute systolic (congestive) heart failure; E11.9 Type 2 diabetes mellitus without complications; Z79.4 Long term (current) use of insulin
CPT/HCPCS: 36415; 80053; 80061; 83036; 84436; 84443; 84480; 85025

== ENCOUNTER 2017-11-02 13:49 | Outpatient (CLI) ==
[2017-11-02 14:04] LABS: FLU INTERNAL QC INTERNAL QC VALID; RAPID FLU A POSITIVE (NEGATIVE); RAPID FLU B NEGATIVE (NEGATIVE)
== END 2017-11-02 13:50 | disposition home or self-care (01) ==
LOC: LAB 13:49
PROVIDERS: ATTEND Emergency Medicine
DX: J06.9 Acute upper respiratory infection, unspecified (principal)
CPT/HCPCS: 87651; 87804; 87880